=== PATIENT | male | born 1980 | race Hispanic/Latino ===

== ENCOUNTER → 2023-06-06 10:49 | Outpatient (REF) | payer OTHER, SELFPAY ==
[2023-06-06 12:26] LABS: ALT (SGPT) 30 U/L (0-50); AST (SGOT) 34 U/L (17-59); Albumin 4.7 g/dl (3.5-5.0); Alkaline Phosphatase 86 U/L (38-126); Blood Urea Nitrogen 12 mg/dl (9-20); Calcium 9.4 mg/dl (8.4-10.2); Carbon Dioxide 25 mmol/L (22-30); Chloride 104 mmol/L (98-107); GGTP 33 U/L (15-73); Glucose 90 mg/dl (70-99); Potassium 4.4 mmol/L (3.5-5.1); Sodium 138 mmol/L (135-145); Total Protein 8.2 g/dl (6.3-8.2); eGFR > 60.00
[2023-06-06 12:37] LABS: Vitamin D, 25-OH*** 38.1 ng/mL (30-80)
[2023-06-07 08:44] LABS: Glycohemoglobin (HgbA1c) 5.9 % (4.0-5.6)
== END ==
LOC: REG 10:49
PROVIDERS: ATTENDING PHYSICIAN Nurse Practitioner Acute Care
DX: R79.89 Other specified abnormal findings of blood chemistry (principal); R73.03 Prediabetes; E55.9 Vitamin D deficiency, unspecified
CPT/HCPCS: 36415; 80053; 82306; 82977; 83036